=== PATIENT | male | born 1985 | race Caucasian/White ===

== ENCOUNTER 2017-01-19 14:34 | Emergency (ER) | payer BC ==
[~2017-01-19] VITALS: Ht 167.6 cm; Wt 82.5 kg
[2017-01-19] MEDS ORDERED: FLEXERIL10 MG PO (15:17)
[2017-01-19] MEDS ORDERED: PERCOCET 5/31 TABLET PO (16:21)
[2017-01-19 16:34] VITALS: BP 146/80
== END 2017-01-19 16:36 | disposition home or self-care (01) ==
LOC: EME 14:34
DX: M51.16 Intervertebral disc disorders with radiculopathy, lumbar region (principal); M54.30 Sciatica, unspecified side
CPT/HCPCS: 99281; 99284; J2270